=== PATIENT | male | born 1955 | race Caucasian/White ===

== ENCOUNTER 2018-12-09 05:34 | Day surgery (SDC) | payer MEDICARE ==
[~2018-12-09 05:34] MED LIST: ALLO100T PO; ATOR40TA71 PO; CITA-106 PO; CLOP75TA32 PO; OLME40TA18 PO; OMEP-272 PO
[2018-12-09] MEDS ORDERED: SODIUM CHLORIDE 0.9% 1000ML 1,000 ML IV ONE (05:46)
[2018-12-09] MEDS ORDERED: PROPOFOL 1000 MG/100 ML 100 ML IV ONE (06:52)
[2018-12-09 07:37] VITALS: BP 123/64
[2018-12-09 07:42] VITALS: BP 125/65
[2018-12-09 07:47] VITALS: BP 123/78
[2018-12-09 07:52] VITALS: BP 136/82
== END 2018-12-09 08:04 | disposition home or self-care (01) ==
LOC: ENDO 05:34 → DAH 05:34 → ENDO 08:04
PROVIDERS: ATTEND Internal Medicine
DX: Z12.11 Encounter for screening for malignant neoplasm of colon (principal); K63.5 Polyp of colon; Z86.010 Personal history of colon polyps; K57.30 Diverticulosis of large intestine without perforation or abscess without bleeding; K64.8 Other hemorrhoids; K64.4 Residual hemorrhoidal skin tags; I10 Essential (primary) hypertension; Z86.73 Personal history of transient ischemic attack (TIA), and cerebral infarction without residual deficits; R00.1 Bradycardia, unspecified; E78.5 Hyperlipidemia, unspecified; F41.9 Anxiety disorder, unspecified; F32.9 Major depressive disorder, single episode, unspecified; Z85.46 Personal history of malignant neoplasm of prostate; Z98.84 Bariatric surgery status; Z98.890 Other specified postprocedural states; Z79.899 Other long term (current) drug therapy; Z68.42 Body mass index [BMI] 45.0-49.9, adult; Z88.8 Allergy status to other drugs, medicaments and biological substances
CPT/HCPCS: 45380; 88305; 93005; A4606; J2704; J7030

== ENCOUNTER → 2023-10-09 | Outpatient (CLI) | payer MEDICARE | END | disposition home or self-care (01) | LOC: SHCH 08:02 | PROVIDERS: ATTEND Internal Medicine Cardiovascular Disease | DX: I65.23 Occlusion and stenosis of bilateral carotid arteries (principal); I67.89 Other cerebrovascular disease; I10 Essential (primary) hypertension; E78.5 Hyperlipidemia, unspecified | CPT/HCPCS: 93880 ==

== ENCOUNTER → 2024-09-14 | Outpatient (CLI) | payer MEDICARE ==
--- NOTE | 2024-09-14 10:42 | HMCSR ---
APPROVED REPORT Laterality: Bilateral Doppler Spectral Velocity Analysis PSV / EDVPSV / EDV ECA (R) 87 / cm/sECA (L) 162 / cm/s dICA (R) 75 / 31 cm/sdICA (L) 109 / 36 cm/s Kimberley (R) 72 / 27 cm/smICA (L) 153 / 61 cm/s pICA (R) 99 / 33 cm/spICA (L) 125 / 39 cm/s dCCA (R) 64 / 23 cm/sdCCA (L) 75 / 26 cm/s mCCA (R) 101 / 25 cm/smCCA (L) 97 / 28 cm/s pCCA (R) 89 / 19 cm/spCCA (L) 111 / 30 cm/s Vert (R) 38 / cm/sVert (L) 59 / cm/s Subl. (R) 152 / cm/sSubl. (L) 145 / cm/s ICA/CCA 0.98ICA/CCA 1.38 Technologist Impression Mild plaque is noted in the bilateral carotid arteries. There is evidence of 50-69% stenosis in the left internal carotid artery. Elevated velocities noted in the left external carotid artery. The bilateral vertebral arteries reflect antegrade flow although the left vertebral artery appears hy poplastic, possibly occluded Conclusion As above. Conclusion As above.
== END | disposition home or self-care (01) ==
LOC: SHCH 08:52
PROVIDERS: ATTEND Internal Medicine Cardiovascular Disease
DX: I65.23 Occlusion and stenosis of bilateral carotid arteries (principal)
CPT/HCPCS: 93880

== ENCOUNTER → 2024-10-28 | Outpatient (CLI) | payer MEDICARE | END | disposition home or self-care (01) | LOC: LAB 10:52 | PROVIDERS: ATTEND Internal Medicine Cardiovascular Disease | DX: E66.9 Obesity, unspecified (principal); I10 Essential (primary) hypertension | CPT/HCPCS: 36415; 84443 ==

== ENCOUNTER → 2025-03-17 | Outpatient (CLI) | payer MEDICARE ==
[2025-03-17] MEDS: REGADENOSON 0.4 MG/5 ML PF SYG IVP ONE (15:44)
--- NOTE | 2025-03-18 07:51 | HMCSR ---
APPROVED REPORT Height: 6 ft 0in Weight: 270 lbs TEST INDICATIONS CAD The imaging protocol used to acquire images was Rest Tc-99m/stress Tc-99m 1 day Consent: The procedure was explained and understood by the patient. Informerd consent was witnessed Taras Bejarano RN First, low dose rest was performed then high dose stress. RESTING DATA: The resting ekg shows: NSR Rest SPECT myocardial perfusion imaging was performed in supine position 128 minutes following the in travenous injection of 10.7 mCi of Tc-99 Sestamibi. Time of rest injection: 09:24: Date: 03/17/2025 Time of rest imagin:32: Date: 03/17/2025 PHARMACOLOGIC STRESS: Pharmacologic stress test was performed by injecting regadenoson 0.4 mg IV push followed by the intra venous injection of 30.3 mCi of Tc-99 Sestamibi. Time of stress injection: 12:04: Date: 03/17/2025 Time of stress imagin:09: Date: 03/17/2025 Heart Rate at time of stress injection: 62 bpm. Gated Stress SPECT was performed 125 minutes after stress injection. The images were gated to evaluate regional wall motion and calculate left ventricular ejection fracti on. STRESS DETAILS Reason for Termination: Infusion complete Stress Symptoms: Dyspnea; Chest Tightness Max HR Achieved: 75 bpm % of APMHR Achieved: 50 Max Blood Pressure: 135/73 mmHg Stress ECG: NSR Conclusion Mild inferior and apical ischemia No infarct LV ejection fraction 60% Normal LV wall motion Normal LV size at rest and stress No increased lung uptake
== END | disposition home or self-care (01) ==
LOC: SHCH 09:00
PROVIDERS: ATTEND Internal Medicine Cardiovascular Disease
DX: I25.9 Chronic ischemic heart disease, unspecified (principal); I25.10 Atherosclerotic heart disease of native coronary artery without angina pectoris; R06.00 Dyspnea, unspecified; R07.89 Other chest pain
CPT/HCPCS: 78452; 93017; J2785; A9500 ×2